=== PATIENT | male | born 1995 | race Caucasian/White ===

== ENCOUNTER 2024-07-09 07:12 | Emergency (ER) | payer OTHER ==
[2024-07-09 07:22] VITALS: TEMP 98.2
--- NOTE | 2024-07-09 09:05 | ED ---
General Adult HPI - General Source: patient, RN notes reviewed Mode of arrival: ambulatory Limitations: no limitations <Annabel Buck - Last Filed: 07/09/24 09:03> - General Source: patient, RN notes reviewed, old records reviewed <Demetrio Dacosta - Last Filed: 07/09/24 14:19> - General Chief complaint: Nausea/Vomiting/Diarrhea Stated complaint: Vomiting Time Seen by Provider: 07/09/24 09:03 - History of Present Illness Initial comments: Quick note: 29-year-old male presents to the emergency department for evaluation of abdominal pain, nausea, vomiting. He states that this has been going on for the past 2 nights. He notes that is worse at night. He reports difficulty holding down fluids. Denies recent fever, chills. (Annabel Buck) Patient is a 29-year-old male who presents originally as a quick note for evaluation of nausea and vomiting. Concern he may have had some blood in his vomit as well, stating he had some redness but he did eat red things with his [place] food yesterday as well as drank red Gatorade. Is not on thinners. Denies any significant complaints otherwise. Has been having upper respiratory symptoms. No significant past medical history for the patient. States he is occasionally having nausea and vomiting in addition to an improving cough. Multiple sick contacts. No fevers. Presents for further evaluation at this time. Abdominal discomfort is in the epigastric space. (Demetrio Dacosta) - Related Data Allergies Allergy/AdvReac Type Severity Reaction Status Date / Time No Known Allergies Allergy Verified 07/09/24 07:22 Review of Systems ROS Other: All systems not noted in ROS Statement are negative. <Annabel Buck - Last Filed: 07/09/24 09:03> ROS Other: All systems not noted in ROS Statement are negative. <Demetrio Dacosta - Last Filed: 07/09/24 14:19> ROS Statement: Those systems with pertinent positive or pertinent negative responses have been documented in the HPI. Review of Systems: CONST: Denies fever EYES: Denies blurry vision ENT: Denies nasal congestion C/V: Denies Chest pain RESP: Denies shortness of breath GI: Endorses epigastric abdominal discomfort : Denies dysuria SKIN: Denies rash. MSK: Denies joint pain. NEURO: Denies headache (Demetrio Dacosta) Past Medical History Past Medical History: No Reported History History of Any Multi-Drug Resistant Organisms: None Reported Past Surgical History: No Surgical Hx Reported Past Psychological History: No Psychological Hx Reported Smoking Status: Never smoker Past Alcohol Use History: None Reported Past Drug Use History: None Reported <Annabel Buck - Last Filed: 07/09/24 09:03> General Exam Limitations: no limitations <Annabel Buck - Last Filed: 07/09/24 09:03> <Demetrio Dacosta - Last Filed: 07/09/24 14:19> - General Exam Comments Initial Comments: Visual Physical Exam Vital signs reviewed General: Well-appearing, nontoxic, no acute distress. Head: Normocephalic, atraumatic Eyes: PERRLA, EOMI ENT: Airway patent Chest: Nonlabored breathing Skin: No visual rash, normal skin tone Neuro: Alert and oriented 3 Musculoskeletal: No gross abnormalities (Annabel Buck) General: Appears in no acute distress. HEAD: Normal with no signs of head trauma. EYES: EOMI ENT: Hearing grossly intact, normal oropharynx. RESPIRATORY: Clear breath sounds bilaterally. No wheezes, rales, or rhonchi. C/V: Regular rate and rhythm. S1 and S2 auscultated, no edema, peripheral pulses 2+ and intact throughout ABD: Abdomen soft, nondistended. Very mild epigastric discomfort to palpation. No guarding. No rebound tenderness. No peritoneal signs. EXT: No obvious deformity. SKIN: No rashes or lesions observed on exposed skin. NEURO: Alert and oriented x 4. (Demetrio Dacosta) Course Vital Signs 07/09/24 07/09/24 07:20 13:28 Temperature 98.2 F Pulse Rate 102 H 57 L Respiratory 18 16 Rate Blood Pressure 132/96 136/82 O2 Sat by Pulse 97 97 Oximetry Medical Decision Making <Annabel Buck - Last Filed: 07/09/24 09:03> - Lab Data Result diagrams: 07/09/24 10:50 07/09/24 10:50 <Demetrio Dacosta - Last Filed: 07/09/24 14:19> - Medical Decision Making Quick note preformed and electronically signed by Annabel Buck PA-C (Annabel Buck) Was pt. sent in by a medical professional or institution (, FAROOQ, ADVOCACY DIRECTOR, urgent care, hospital, or correction...) When possible be specific @ -No Did you speak to anyone other than the patient for history (EMS, parent, family, police, friend...)? What history was obtained from this source @ -No Did you review nursing and triage notes (agree or disagree)? Why? @ -I reviewed and agree with nursing and triage notes Were old charts reviewed (outside hosp., previous admission, EMS record, old EKG, old radiological studies, urgent care reports/EKG's, correction records)? Report findings @ -No old charts were reviewed Differential Diagnosis (chest pain, altered mental status, abdominal pain women, abdominal pain men, vaginal bleeding, weakness, fever, dyspnea, syncope, headache, dizziness, GI bleed, back pain, seizure, CVA, palpatations, mental health, musculoskeletal)? @ -Differential Abdominal Pain Men: Appendicitis, cholecystitis, diverticulosis, ischemic bowel, pancreatitis, hepatitis, UTI, gastroenteritis, AAA, incarcerated hernia, bowel obstruction, constipation, inflammatory bowel, hepatitis, peptic ulcer disease, splenic infarction, perforated viscus, testicular torsion, this is not meant to be an all-inclusive list EKG interpreted by me (3pts min.). @ -As above X-rays interpreted by me (1pt min.). @ -Chest x-ray reveals no obvious acute cardiopulmonary process. CT interpreted by me (1pt min.). @ -None done U/S interpreted by me (1pt. min.). @ -Gallbladder ultrasound reveals no obvious acute gallbladder pathology. What testing was considered but not performed or refused? (CT, X-rays, U/S, l abs)? Why? @ -None What meds were considered but not given or refused? Why? @ -None Did you discuss the management of the patient with other professionals (professionals i.e. FAROOQ Luna, ADVOCACY DIRECTOR, lab, RT, psych nurse, transition social worker, helicopter crew chief, teacher, safety security officer, family caseworker)? Give summary @ -No Was smoking cessation discussed for >3mins.? @ -No Was critical care preformed (if so, how long)? @ -No Were there social determinants of health that impacted care today? How? (Homelessness, low income, unemployed, alcoholism, drug addiction, transportation, low edu. Level, literacy, decrease access to med. care, [facility], rehab)? @ -No Was there de-escalation of care discussed even if they declined (Discuss DNR or withdrawal of care, Hospice)? DNR status @ -No What co-morbidities impacted this encounter? (DM, HTN, Smoking, COPD, CAD, Cancer, CVA, ARF, Chemo, Hep., AIDS, mental health diagnosis, sleep apnea, morbid obesity)? @ -None Was patient admitted / discharged? Hospital course, mention meds given and route, prescriptions, significant lab abnormalities, going to OR and other pertinent info. @ -Patient presents for abdominal pain with nausea and vomiting with possible bleeding in his emesis. Vitals within acceptable limits. Originally seen as a quick note. Patient is resting comfortably. I do believe this is likely viral. Patient does have a picture of his bloody emesis and it does not appear like bloody emesis however we will obtain basic labs, coags, viral swabs. Patient w as in agreement this plan. Will also obtain gallbladder ultrasound and chest x- ray. He will be symptomatically treat with IV fluids, IV Protonix, Zofran, Toradol, Maalox. Vitals within acceptable limits. Chest x-ray unremarkable. Gallbladder ultrasound unremarkable. Laboratory studies unremarkable including normal lactic acid. 3+ ketones in urine. Patient is flu A+. After the patient at this time. He is feeling improved. He will be discharged home with starter pack of ODT Zofran. Patient was in agreement this plan. Strict return precautions discussed.Patient does not meet criteria for Tamiflu treatment as patient has had many days of symptoms. I will provide the patient with a prescription for ODT Zofran starter pack. I instructed the patient to follow up with their PCP in the next 1-3 days.. I explained that the patient should return to the emergency department if they ex perience any worsening symptoms. Strict return precautions were discussed with the patient. The patient expressed understanding of these instructions. I answered all questions that the patient had. The patient was discharged home in good condition with their prescriptions and follow up information. Undiagnosed new problem with uncertain prognosis? @ -No Drug Therapy requiring intensive monitoring for toxicity (Heparin, Nitro, Insulin, Cardizem)? @ -No Were any procedures done? @ -No Diagnosis/symptom? @ -Influenza A infection, nausea and vomiting Acute, or Chronic, or Acute on Chronic? @ -Acute Uncomplicated (without systemic symptoms) or Complicated (systemic symptoms)? @ -Complicated Side effects of treatment? @ -No Exacerbation, Progression, or Severe Exacerbation? @ -No Poses a threat to life or bodily function? How? (Chest pain, [place], [place], pneumonia, PE, COPD, DKA, ARF, appy, cholecystitis, CVA, Diverticulitis, Homicidal, Suicidal, threat to staff... and all critical care pts) @ -Unlikely at this time (Demetrio Dacosta) - Lab Data Lab Results 07/09/24 07/09/24 07/09/24 Range/Units 09:58 10:50 10:50 WBC 10.4 (3.8-10.6) k/uL RBC 5.71 (4.30-5.90) m/uL Hgb 16.7 (13.0-17.5) gm/dL Hct 49.3 (39.0-53.0) % MCV 86.3 (80.0-100.0) fL MCH 29.3 (25.0-35.0) pg MCHC 33.9 (31.0-37.0) g/dL RDW 12.8 (11.5-15.5) % Plt Count 147 L (150-450) k/uL MPV 8.3 Neutrophils % 82 % Lymphocytes % 8 % Monocytes % 9 % Eosinophils % 0 % Basophils % 0 % Neutrophils # 8.5 H (1.3-7.7) k/uL Lymphocytes # 0.8 L (1.0-4.8) k/uL Monocytes # 1.0 (0-1.0) k/uL Eosinophils # 0.0 (0-0.7) k/uL Basophils # 0.0 (0-0.2) k/uL PT 11.1 (10.0-12.5) sec INR 1.0 (<1.2) APTT 25.8 (22.0-30.0) sec Sodium (137-145) mmol/L Potassium (3.5-5.1) mmol/L Chloride (98-107) mmol/L Carbon Dioxide (22-30) mmol/L Anion Gap mmol/L BUN (9-20) mg/dL Creatinine (0.66-1.25) mg/dL Est GFR (CKD-EPI)AfAm (>60 ml/min/1.73 sqM) Est GFR (CKD-EPI)NonAf (>60 ml/min/1.73 sqM) Glucose (74-99) mg/dL Plasma Lactic Acid Alonzo (0.7-2.0) mmol/L Calcium (8.4-10.2) mg/dL Total Bilirubin (0.2-1.3) mg/dL AST (17-59) U/L ALT (4-49) U/L Alkaline Phosphatase (38-126) U/L Total Protein (6.3-8.2) g/dL Albumin (3.5-5.0) g/dL Amylase (30-110) U/L Lipase (23-300) U/L Urine Color Yellow Urine Appearance Clear (Clear) Urine pH 6.5 (5.0-8.0) Ur Specific [place] 1.029 (1.001-1.035) Urine Protein 1+ H (Negative) Urine Glucose (UA) Negative (Negative) Urine Ketones 3+ H (Negative) Urine Blood Negative (Negative) Urine Nitrite Negative (Negative) Urine Bilirubin Negative (Negative) Urine Urobilinogen 2.0 (<2.0) mg/dL Ur Leukocyte Esterase Negative (Negative) Urine WBC 2 (0-5) /hpf Amorphous Sediment Rare H (None) /hpf Urine Mucus Few H (None) /hpf Influenza Type A (PCR) (Not Detectd) Influenza Type B (PCR) (Not Detectd) RSV (PCR) (Not Detectd) SARS-CoV-2 (PCR) (Not Detectd) 07/09/24 07/09/24 07/09/24 Range/Units 10:50 11:13 11:13 WBC (3.8-10.6) k/uL RBC (4.30-5.90) m/uL Hgb (13.0-17.5) gm/dL Hct (39.0-53.0) % MCV (80.0-100.0) fL MCH (25.0-35.0) pg MCHC (31.0-37.0) g/dL RDW (11.5-15.5) % Plt Count (150-450) k/uL MPV Neutrophils % % Lymphocytes % % Monocytes % % Eosinophils % % Basophils % % Neutrophils # (1.3-7.7) k/uL Lymphocytes # (1.0-4.8) k/uL Monocytes # (0-1.0) k/uL Eosinophils # (0-0.7) k/uL Basophils # (0-0.2) k/uL PT (10.0-12.5) sec INR (<1.2) APTT (22.0-30.0) sec Sodium 136 L (137-145) mmol/L Potassium 4.1 (3.5-5.1) mmol/L Chloride 100 (98-107) mmol/L Carbon Dioxide 25 (22-30) mmol/L Anion Gap 11 mmol/L BUN 13 (9-20) mg/dL Creatinine 1.05 (0.66-1.25) mg/dL Est GFR (CKD-EPI)AfAm >90 (>60 ml/min/1.73 sqM) Est GFR (CKD-EPI)NonAf >90 (>60 ml/min/1.73 sqM) Glucose 102 H (74-99) mg/dL Plasma Lactic Acid [place] 1.3 (0.7-2.0) mmol/L Calcium 8.8 (8.4-10.2) mg/dL Total Bilirubin 0.8 (0.2-1.3) mg/dL AST 30 (17-59) U/L ALT 26 (4-49) U/L Alkaline Phosphatase 46 (38-126) U/L Total Protein 6.5 (6.3-8.2) g/dL Albumin 4.2 (3.5-5.0) g/dL Amylase 87 (30-110) U/L Lipase 112 (23-300) U/L Urine Color Urine Appearance (Clear) Urine pH (5.0-8.0) Ur Specific [place] (1.001-1.035) Urine Protein (Negative) Urine Glucose (UA) (Negative) Urine Ketones (Negative) Urine Blood (Negative) Urine Nitrite (Negative) Urine Bilirubin (Negative) Urine Urobilinogen (<2.0) mg/dL Ur Leukocyte Esterase (Negative) Urine WBC (0-5) /hpf Amorphous Sediment (None) /hpf Urine Mucus (None) /hpf Influenza Type A (PCR) Detected A (Not Detectd) Influenza Type B (PCR) Not Detected (Not Detectd) RSV (PCR) Not Detected (Not Detectd) SARS-CoV-2 (PCR) Not Detected (Not Detectd) Disposition <Annabel Buck - Last Filed: 07/09/24 09:03> Is patient prescribed a controlled substance at d/c from ED?: No Time of Disposition: 14:10 <Demetrio Dacosta - Last Filed: 07/09/24 14:19> Clinical Impression: Influenza A, Nausea and vomiting Disposition: HOME SELF-CARE Condition: Good Instructions (If sedation given, give patient instructions): Acute Nausea and Vomiting (ED), Influenza (ED) Referrals: None,Stated [Primary Care Provider] - 1-2 days Forms: Area PCPs
[2024-07-09 10:22] LABS: Amorphous Sediment,Urine Rare /hpf; Appearance,Urine Clear (Clear); Bilirubin,Urine Negative (Negative); Blood,Urine Negative (Negative); Color,Urine Yellow; Glucose,Urine (UA) Negative (Negative); Ketones,Urine 3+ (Negative); Leukocyte Esterase,Urine Negative (Negative); Mucus,Urine Few /hpf; Nitrite,Urine Negative (Negative); PH, Urine 6.5 (5.0-8.0); Protein,Urine 1+ (Negative); Specific Gravity,Urine 1.029 (1.001-1.035); WBC,Urine 2 /hpf (0-5)
[2024-07-09] MEDS: SODIUM CHLORIDE 0.9% 1,000 ML IV STA ×2 (11:16→13:15)
[2024-07-09] MEDS: ONDANSETRON 4 MG/2 ML VIAL IVP STA (11:19)
[2024-07-09] MEDS: PANTOPRAZOLE 40 MG/10 ML VIAL IVP STA (11:23)
[2024-07-09 11:29] LABS: Basophils % (A) 0 %; Eosinophils % (A) 0 %; HCT 49.3 % (39.0-53.0); HGB 16.7 gm/dL (13.0-17.5); Lymphocytes # (A) 0.8 k/uL (1.0-4.8); Lymphocytes % (A) 8 %; MCH 29.3 pg (25.0-35.0); MCHC 33.9 g/dL (31.0-37.0); MCV 86.3 fL (80.0-100.0); Mean Platelet Volume 8.3; Monocytes % (A) 9 %; Neutrophils # (A) 8.5 k/uL (1.3-7.7); Neutrophils % (A) 82 %; Platelet Count 147 k/uL (150-450); RBC 5.71 m/uL (4.30-5.90); RDW 12.8 % (11.5-15.5); WBC 10.4 k/uL (3.8-10.6)
[2024-07-09 11:35] LABS: ALT 26 U/L (4-49); AST 30 U/L (17-59); African American GFR (CKD) >90 (>60 ml/min/1.73 sqM); Albumin 4.2 g/dL (3.5-5.0); Alkaline Phosphatase 46 U/L (38-126); Amylase 87 U/L (30-110); Anion Gap 11 mmol/L; Blood Urea Nitrogen 13 mg/dL (9-20); Calcium 8.8 mg/dL (8.4-10.2); Carbon Dioxide 25 mmol/L (22-30); Chloride 100 mmol/L (98-107); Glucose 102 mg/dL (74-99); Lipase 112 U/L (23-300); Non-African American GFR(CKD) >90 (>60 ml/min/1.73 sqM); Potassium 4.1 mmol/L (3.5-5.1); Sodium 136 mmol/L (137-145); Total Bilirubin 0.8 mg/dL (0.2-1.3); Total Protein 6.5 g/dL (6.3-8.2)
[2024-07-09 11:45] LABS: Partial Thromboplastin Time 25.8 sec (22.0-30.0); Prothrombin Time 11.1 sec (10.0-12.5)
--- NOTE | 2024-07-09 11:46 | XR ---
EXAMINATION TYPE: XR chest 2V DATE OF EXAM: 07/09/2024 11:34 AM COMPARISON: None CLINICAL INDICATION: Male, 29 years old with history of cough; [facility] TECHNIQUE: XR chest 2V Frontal and lateral views of the chest. FINDINGS: Lungs/Pleura: There is no evidence of pleural effusion, focal consolidation, or pneumothorax. Pulmonary vascularity: Unremarkable. Heart/mediastinum: Cardiomediastinal silhouette is unremarkable. Musculoskeletal: No acute osseous pathology. IMPRESSION: No acute cardiopulmonary disease/process. [facility], , 07/09/2024 11:44 AM
[2024-07-09] MEDS: MAG HYDROX/AL HYDROX/SIMETH 30 ML, HYOSCYAMINE ELIXIR 10 ML, LIDOCAINE VISCOUS 2% 10 ML PO STA (11:56)
[2024-07-09 13:28] VITALS: BP 136/82; PULSE 57; RESP 16
[2024-07-09] MEDS: KETOROLAC 15 MG/ML 1 ML VIAL IVP STA (13:33)
--- NOTE | 2024-07-09 14:02 | US ---
EXAMINATION TYPE: US gallbladder DATE OF EXAM: 07/09/2024 COMPARISON: NONE CLINICAL INDICATION: Male, 29 years old with history of n/v; N/V x 2 days TECHNIQUE: Grayscale and color Doppler imaging of the right upper quadrant was performed. FINDINGS: EXAM MEASUREMENTS: Liver Length: 15.9 cm Gallbladder Wall: 0.2 cm CBD: 0.4 cm Right Kidney: 10.8x5.8x4.6 cm INSURANCE CHECKER NOTES: Pancreas: Tail obscured by overlying bowel gas Liver: fatty liver, focal sparring adjacent to GB Gallbladder: wnl Evidence for sonographic White's sign: No CBD: wnl Right Kidney: wnl exam limited by habitus, bowel gas IMPRESSION: 1. No evidence for acute process. 2. Hepatic steatosis. [facility], , 07/09/2024 2:00 PM
[2024-07-09] MEDS: ONDANSETRON 4 MG ODT STARTER PACK 2 TAB BTL PO STA (14:26)
== END 2024-07-09 14:32 | disposition home or self-care (01) ==
LOC: EC 07:12
DX: J10.1 Influenza due to other identified influenza virus with other respiratory manifestations (principal); R11.2 Nausea with vomiting, unspecified; K76.0 Fatty (change of) liver, not elsewhere classified
CPT/HCPCS: 36415; 80053; 82150; 83605; 83690; 85025; 85610; 85730; 81001; 87636; 71046; 76705; 99283; 96374; 96375 ×2; 96361 ×2; J2405; J1885; S0119; J2470